=== PATIENT | male | born 2000 | race Caucasian/White ===

== ENCOUNTER 2021-01-27 16:42 | Emergency (ER) | payer OTHER ==
[~2021-01-27] VITALS: Ht 193 cm; Wt 69.2 kg
--- NOTE | 2021-01-27 17:15 | NUR ---
CC OF RIGHT UPPER ARM PAIN AND POSSIBLE FX AFTER HITING POT HOLE WHILE CYCLING AND FLYING OVER HANDLE BARS. PT HAS RECENT FX TO SAME ARM FROM AUGUST 2020. OBVIOUS DEFORMITY NOTED, NO OPEN SKIN . PT HAS BASELINE DECREASED SENSATION TO RIGHT HAND FROM FIRST ACCIDENT, ABLE TO WIGGLE FINGERS AND HAS 2/2 PULSE. PT DENIES HITING HEAD AND NO LOC.
[2021-01-27 18:51] VITALS: BP 127/68
== END 2021-01-27 18:54 | disposition home or self-care (01) ==
LOC: ED 17:39
DX: S42.391A Other fracture of shaft of right humerus, initial encounter for closed fracture (principal); Z88.6 Allergy status to analgesic agent; V19.9XXA Pedal cyclist (driver) (passenger) injured in unspecified traffic accident, initial encounter; Y93.89 Activity, other specified; Y92.410 Unspecified street and highway as the place of occurrence of the external cause; Y99.8 Other external cause status
CPT/HCPCS: 29125; 99283